=== PATIENT | female | born 1975 | race Caucasian/White ===

== ENCOUNTER 2021-01-31 14:55 | Emergency (ER) | payer OTHER, SELFPAY ==
[2021-01-31 15:01] VITALS: BP 126/66; PULSE 73; RESP 16; TEMP 36.9; O2SAT 98
--- NOTE | 2021-01-31 15:19 | ED.GENADULT ---
HPI - General Adult General Chief complaint: Skin/Abscess/Foreign Body Stated complaint: rash Time Seen by Provider: 01/31/21 15:19 Source: patient and RN notes reviewed Mode of arrival: ambulatory Limitations: no limitations History of Present Illness HPI narrative: 46-year-old female presents to the [facility] with complaints of a rash has a blistery red rash in a linear fashion to the right lumbar area. States she has had a similar rash in the past and was given several different diagnoses. States it started 3 days ago as tingling, redness started yesterday, blister and pain started today with the pain radiating down into her hip and upper thigh. Denies any fevers, chest pain, shortness of breath or abdominal pain. Related Data Home Medications Medication Instructions Recorded Confirmed levothyroxine 01/31/21 Allergies Allergy/AdvReac Type Severity Reaction Status Date / Time cephalexin Allergy Mild hives Verified 01/31/21 15:01 levofloxacin Allergy Mild hives Verified 01/31/21 15:01 metronidazole Allergy Mild hives Verified 01/31/21 15:01 Penicillins Allergy Mild hives Verified 01/31/21 15:01 Sulfa (Sulfonamide Allergy Mild hives Verified 01/31/21 15:01 Antibiotics) Review of Systems Review of Systems: Narrative: CONSTITUTIONAL: Denies fever, chills, or sweats. EYES: Denies visual changes, redness, or discharge. ENT: Denies rhinorrhea, congestion, sore throat, or otalgia. CARDIOVASCULAR: Denies chest pain, palpitations, or edema. RESPIRATORY: Denies cough or dyspnea. GASTROINTESTINAL: Denies abdominal pain, nausea, vomiting, or diarrhea. GENITOURINARY: Denies dysuria or hematuria. SKIN: Reports painful rash. denies itching. MUSCULOSKELETAL: Denies back pain, joint pain, or myalgia. NEUROLOGIC: Denies headache, numbness, or weakness. PSYCHIATRIC: Denies anxiety or depression. All other systems reviewed are negative, except as documented in HPI. [facility] Family History Family History Mother Patient's mother is in good health Sibling Patient's sister is in good health Patient's brother is in good health Father Family history of alcoholism Family history of diabetes mellitus in first degree relative Patient's father is Social History Social History Social History: Smoking status: Current every day smoker Tobacco type: cigarettes Second hand tobacco smoke exposure: Yes Additional smoking assessment comments: pt smokes couple times a week, not daily Alcohol intake: current Drinks per week: 2 Substance use: never Substance use type: does not use Gender identity (if verbalized by the patient): Female Comments At the time of my signature, I reviewed and agree with the nursing past medical, surgical, social, and family history. There is no relevant family history pertinent to the patient complaint. Exam Narrative: Exam Narrative: GENERAL: This is a well-nourished, well-developed patient, in no apparent distress. HEAD: normocephalic, atraumatic. EYES: PERRL. Sclera clear/white. Vision is grossly intact. EARS: External ears normal. NECK: Neck supple, non-tender. CARDIOVASCULAR: Regular rate and rhythm without murmurs, gallops, or rubs. RESPIRATORY: Clear to auscultation. Breath sounds equal bilaterally. No wheezes, rales, or rhonchi. GASTROINTESTINAL: Abdomen soft, non-tender. SKIN: warm, dry, intact. Blistery rash right posterior hip. Good texture and turgor. NEURO: awake, alert, and oriented to person, place and time. There were no obvious focal neurologic abnormalities. EXTREMITIES: No joint tenderness, effusion, or edema noted. No calf tenderness. BACK: Nontender without deformity. Course Vital Signs Vital signs: Vital Signs Temperature 98.5 F 01/31/21 15:01 Pulse Rate 73 01/31/21 15:01 Respiratory Rate 16 01/31/21 15:01 Blood Pr
== END 2021-01-31 15:30 | disposition home or self-care (01) ==
PROVIDERS: Emergency Provider Nurse Practitioner; PCP Family Medicine
DX: B02.9 Zoster without complications (principal); F17.210 Nicotine dependence, cigarettes, uncomplicated; E89.0 Postprocedural hypothyroidism
CPT/HCPCS: 99213; G0463

== ENCOUNTER 2021-10-29 10:07 | Outpatient (CLI) | payer OTHER, SELFPAY ==
--- NOTE | ~2021-10-29 | XR_ITS ---
EXAMINATION: XR knee LT 3V DATE: 10/29/2021 10:23 INDICATION: Left knee pain. TECHNIQUE: 3 views of left knee were obtained. COMPARISON: None. FINDINGS: Bone alignment is normal. No fracture. There is mild osteoarthritis of medial and lateral c ompartments characterized by tiny marginal osteophytes. Joint space narrowing. No knee joint effusion . IMPRESSION: 1. Mild left knee osteoarthritis. Reviewed, dictated and finalized at location A. CARVER
== END 2021-10-29 10:08 | disposition home or self-care (01) ==
LOC: ANHIMG 10:11
PROVIDERS: PCP Family Medicine; Visit Provider Nurse Practitioner Gerontology
DX: M25.562 Pain in left knee (principal); M17.12 Unilateral primary osteoarthritis, left knee
CPT/HCPCS: 73562

== ENCOUNTER 2021-12-13 13:37 | Outpatient (CLI) | payer OTHER, SELFPAY ==
--- NOTE | ~2021-12-13 | XR_ITS ---
XR_CERV2-3V_CR DATE: 12/13/2021 13:58 INDICATION: Right arm and hand numbness TECHNIQUE: AP, open-mouth and lateral views COMPARISON: None FINDINGS: There is straightening of the cervical spine which may be due to muscle spasm. C1 and C2 are normally aligned and the odontoid process is intact. There is mild loss of interspace height at C5-6. There is mild loss of interspace height and mild anterior spurring at C6-7. There is mild uncovertebral joint spurring at C5-6 No fracture or dislocation or locked facet or prevertebral soft tissue swelling. IMPRESSION: Straightening of the cervical spine Mild degenerative disc disease at C5-6 and C6-7 Mild uncovertebral joint spurring at C5-6 Reviewed, dictated and finalized at Location A. Reviewed, dictated and finalized at location A. DRAFTER
== END 2021-12-13 13:38 | disposition home or self-care (01) ==
LOC: ANHIMG 13:42
PROVIDERS: PCP Family Medicine; Visit Provider Nurse Practitioner Gerontology
DX: M79.601 Pain in right arm (principal); M53.82 Other specified dorsopathies, cervical region; M50.322 Other cervical disc degeneration at C5-C6 level; M77.8 Other enthesopathies, not elsewhere classified
CPT/HCPCS: 72040

== ENCOUNTER → 2022-01-05 08:32 | Outpatient (CLI) | payer OTHER, SELFPAY ==
--- NOTE | ~2022-01-05 | MR_ITS ---
EXAMINATION: MR knee LT wo con DATE: 01/05/2022 09:13 INDICATION: Left knee pain TECHNIQUE: Magnetic resonance imaging (MRI) of the left knee was performed without intravenous contra st. Sequences included coronal PD-weighted FSE, coronal PD-weighted FS FSE, sagittal T2-weighted FSE , sagittal PD-weighted FS FSE and axial PD weighted fat saturated FSE. COMPARISON: Left knee radiographs dated 12/24/2021 FINDINGS: Medial compartment: Medial meniscus is normal. Articular cartilage is normal. Lateral compartment: Lateral meniscus is normal. Articular cartilage is normal. Patellofemoral compartment: Partial-thickness tear involving less than 50% the cartilage thickness at the medial patellar facet. Shallow chondral surface regularity along the lateral facet and at the trochlear groove. Ligaments and tendons: Anterior and posterior cruciate ligaments are normal. The medial collateral ligament and fibular courtney ateral ligament complex are normal. The extensor mechanism is normal. The visualized medial hamstring tendons as well as the iliotibial band are normal. There is mild tendinopathy/enthesopathy at the di stal biceps femoris tendon with minimal enthesopathic ossification evident along the distal tendon on the prior radiographs. Fluid: Physiologic amount of fluid in the joint space. No loose osteochondral bodies identified. Small Calles 's cyst. Osseous/other: Normal marrow signal. Bone island at the lateral metaphyseal region of the proximal tibia. No fractur e or pathologic marrow replacing process. IMPRESSION: 1. Mild patellofemoral osteoarthritis with small amount of moderate grade chondromalacia. 2. Chronic mild distal biceps femoris tendinopathy/enthesopathy without discrete tear. 3. Small Calles's cyst. Reviewed, dictated and finalized at location A. SPORTATION WORKER IMPRESSION: 1. Mild patellofemoral osteoarthritis with small amount of moderate grade chond romalacia. 2. Chronic mild distal biceps femoris tendinopathy/enthesopathy without discret e tear. 3. Small Calles's cyst.
== END ==
PROVIDERS: PCP Family Medicine; Visit Provider Nurse Practitioner Family
DX: M25.562 Pain in left knee (principal); M17.12 Unilateral primary osteoarthritis, left knee; M94.262 Chondromalacia, left knee; M71.22 Synovial cyst of popliteal space [Baker], left knee
CPT/HCPCS: 73721

== ENCOUNTER 2022-02-02 08:38 | Outpatient (CLI) | payer OTHER, SELFPAY ==
--- NOTE | 2022-02-02 11:00 | NEURO_ITS ---
Impression: # Complains of pointing and middle finger numbness and nocturnal pain. # Normal nerve conduction study. # No Carpal Tunnel Syndrome or ulnar neuropathy. # Normal needle/EMG exam. # Clinical correlation recommended. Nerve Conduction Studies Anti Sensory Summary Table Stim Site NR Peak (ms) P-T Amp (?V) Site1 Site2 Delta-P (ms) Dist (cm) Jorge (m/s) Right Median Anti Sensory (2-3nd Digit) Wrist 2.4 95.7 Wrist 2-3nd Digit 2.4 14.0 58 Wrist 2.3 98.1 Wrist 2-3nd Digit 2.4 14.0 58 Right Radial Anti Sensory (Base 1st Digit) Wrist 2.2 37.8 Wrist Base 1st Digit 2.2 0.0 Right Ulnar Anti Sensory (5th Digit) Wrist 2.1 83.5 Wrist 5th Digit 2.1 14.0 67 Motor Summary Table Stim Site NR Onset (ms) O-P Amp (mV) Site1 Site2 Delta-0 (ms) Dist (cm) Jorge (m/s) Right Median Motor (Abd Poll Brev) Wrist 2.7 5.5 Elbow Wrist 3.7 23.0 62 Elbow 6.4 4.9 Right Ulnar Motor (Abd Dig Minimi) Wrist 2.1 5.2 A Elbow Wrist 3.8 26.0 68 A Elbow 5.9 2.9 F Wave Studies NR F-Lat (ms) L-R F-Lat (ms) Right Median (Mrkrs) (Abd Poll Brev) 24.74 Right Ulnar (Mrkrs) (Abd Dig Min) 23.96 EMG Side Muscle Nerve Root Ins Act Fibs Amp Dur Recrt Comment Right 1stDorInt Ulnar C8-T1 Nml Nml Nml Nml Nml Right Ext Indicis Radial (Post Int) C7-8 Nml Nml Nml Nml Nml Right Ext Digitorum Radial (Post Int) C7-8 Nml Nml Nml Nml Nml Right BrachioRad Radial C5-6 Nml Nml Nml Nml Nml Right PronatorTeres Median C6-7 Nml Nml Nml Nml Nml Right Abd Poll Brev Median C8-T1 Nml Nml Nml Nml Nml Right ABD Dig Min Ulnar C8-T1 Nml Nml Nml Nml Nml Right Abd Poll Long Radial (Post Int) C7-8 Nml Nml Nml Nml Nml MTDD
== END 2022-02-02 08:39 | disposition home or self-care (01) ==
PROVIDERS: PCP Family Medicine; Visit Provider Nurse Practitioner Gerontology
DX: M79.601 Pain in right arm (principal)
CPT/HCPCS: 95886; 95909

== ENCOUNTER 2022-02-07 01:42 | Day surgery (SDC) | payer OTHER, SELFPAY ==
[2022-01-27 13:05] VITALS: BMI 26.6
--- NOTE | 2022-02-05 12:52 | WPDANESEPPF ---
Anes - Initial Pre Proc Eval Procedure: Operation Date: 02/07/22 10:00 Proposed Procedures p Screening Colonoscopy - Newton Haskins MD Date/Time: 02/05/22 12:52 Surgeon: Newton Haskins MD Pre Op Diagnosis: neoplasm screening Patient Data Age: 47 Gender: F Height: 1.6 m Weight: 68.1 kg Allergies Allergy/AdvReac Type Severity Reaction Status Date / Time cephalexin Allergy Mild hives Verified 02/07/22 08:50 levofloxacin Allergy Mild hives Verified 02/07/22 08:50 metronidazole Allergy Mild hives Verified 02/07/22 08:50 Penicillins Allergy Mild hives Verified 02/07/22 08:50 Sulfa (Sulfonamide Allergy Mild hives Verified 02/07/22 08:50 Antibiotics) Home Medications Medication Instructions Recorded Confirmed Type levothyroxine 137 mcg tablet 137 mcg PO DAILY #30 tablet 10/29/21 02/07/22 Rx Patient hx anesthesia problems: none Family hx anesthesia problems: none Results Review: All pre-operative results and documents have been reviewed as part of the pre-operative evaluation. 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 Screen for colon cancer Surgical History Surgical History History of thyroidectomy Family History Family History Mother Patient's mother is in good health Sibling Patient's sister is in good health Patient's brother is in good health Father Family history of alcoholism Family history of diabetes mellitus in first degree relative Patient's father is Other Arthritis Diabetes mellitus Heart disease Hypertension Social History Social History Social History: Smoking status: Current some day smoker Tobacco type: cigarettes Second hand tobacco smoke exposure: Yes Additional smoking assessment comments: 10 cigarettes a week Alcohol intake: current Drinks per week: 6 Substance use: never Substance use type: does not use Living arrangements: alone Gender identity (if verbalized by the patient): Female Sexual Orientation (if Verbalized by the Patient): Straight or Heterosexual Spiritual care concerns: No Anes - Eval Final PreProcedure Day of Procedure 02/05/22 12:52 Patient weight: overweight Heart: regular rate and rhythm Lungs: clear to auscultation and normal air movement Airway: Mallampati scale class II Neurological: alert and oriented Last oral intake: >/= 8 hours ASA classification: II Emergent: no Anesthetic plan: proceed Anesthesia type and monitoring: general GIVS and standard monitoring Results Review: All pre-operative results and documents have been reviewed as part of the pre-operative evaluation. Informed Consent: The patient's anesthetic plan and its attendant risks and benefits were discussed with the patient/family/POA. Questions were solicited and answers provided to the satisfaction of the patient/family/POA.
[2022-02-07 08:51] VITALS: BP 128/83; PULSE 88; RESP 20; TEMP 35.8; O2SAT 98; BMI 26.5
--- NOTE | 2022-02-07 09:00 | PM.HPGS ---
History of Present Illness History of Present Illness Consent: Risks, benefits, and alternatives have been discussed and questions answered. Patient agrees to proceed with procedure. Chief complaint: neoplasm screening Narrative: Jenny Mejia is a 47 year old female here for first screening colonoscopy Review of Systems Constitutional: Constitutional: Denies headache(s) and Denies weakness Eyes: Eyes: Denies blurry vision ENT: Reports Normal hearing present, Denies headache(s) and Denies neck pain Cardiovascular: Cardiovascular: Denies chest pain and Denies dyspnea Respiratory: Respiratory: Denies dyspnea Gastrointestinal: Gastrointestinal: Reports no additional gastrointestinal complaints Genitourinary: Genitourinary: Denies dysuria Musculoskeletal: Musculoskeletal: Denies neck pain Integumentary/Breasts: Skin/Breast: Denies dry skin Neurologic: Reports Normal hearing present, Denies headache(s) and Denies weakness Psychiatric: Psychiatric: Denies anxiety Endocrine: Endocrine: Denies change in body appearance Hematologic/Lymphatic: Hematologic/Lymphatic: Denies easy bleeding Allergic/Immunologic: Allergic/Immunologic: Denies urticaria PMFSH Past Medical History Medical History (Updated 01/14/22 @ 11:17 by NAOMI Heck) Arm pain, right Breast screening Dehydration Flu-like symptoms Gastroenteritis and colitis, viral Hyperglycemia Hyperlipemia Hypothyroid Knee pain, left Left knee pain Medial meniscus tear Numbness and tingling in right hand Patellofemoral syndrome 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 Screen for colon cancer Surgical History Surgical History History of thyroidectomy Family History Family History Mother Patient's mother is in good health Sibling Patient's sister is in good health Patient's brother is in good health Father Family history of alcoholism Family history of diabetes mellitus in first degree relative Patient's father is Other Arthritis Diabetes mellitus Heart disease Hypertension Social History Social History Social History: Smoking status: Current some day smoker Tobacco type: cigarettes Second hand tobacco smoke exposure: Yes Additional smoking assessment comments: 10 cigarettes a week Alcohol intake: current Drinks per week: 6 Substance use: never Substance use type: does not use Living arrangements: alone Gender identity (if verbalized by the patient): Female Sexual Orientation (if Verbalized by the Patient): Straight or Heterosexual Spiritual care concerns: No Meds Home Medications and Allergies Home Medications Medication Instructions Recorded Confirmed Type levothyroxine 137 mcg tablet 137 mcg PO DAILY #30 tablet 10/29/21 02/07/22 Rx Allergies Allergy/AdvReac Type Severity Reaction Status Date / Time cephalexin Allergy Mild hives Verified 02/07/22 08:50 levofloxacin Allergy Mild hives Verified 02/07/22 08:50 metronidazole Allergy Mild hives Verified 02/07/22 08:50 Penicillins Allergy Mild hives Verified 02/07/22 08:50 Sulfa (Sulfonamide Allergy Mild hives Verified 02/07/22 08:50 Antibiotics) Vital Signs Vital Signs - 24 hr 02/07/22 08:51 Temperature 96.5 F L Pulse Rate 88 Respiratory Rate 20 Blood Pressure 128/83 Pulse Oximetry 98 Exam Const: General: comfortable and no acute distress HENMT: General nose exam: Normal nares present Eyes: General: appearance normal, both eyes and all related structures Neck: Neck: no JVD Resp: Auscultation: clear to auscultation bilaterally Cardio: Rate: regular rate Rhythm: regular rhythm GI: Inspection: non-distended GI Palp: Yes Soft to palpation Skin: General skin exam: normal color Neuro: General: gait normal S
[2022-02-07] MEDS: LACTATED RINGERS 1,000 ML 150 ML IV CONT (09:08)
[2022-02-07 09:32] VITALS: BP 108/72; PULSE 86; RESP 21; O2SAT 98
[2022-02-07 09:42] VITALS: BP 104/74; PULSE 77; RESP 15; O2SAT 100
[2022-02-07 09:52] VITALS: BP 114/83; PULSE 65; RESP 16; O2SAT 100
== END 2022-02-07 09:58 | disposition home or self-care (01) ==
PROVIDERS: PCP Family Medicine; Visit Provider Internal Medicine Gastroenterology
PROC: 0DJD8ZZ Inspection of Lower Intestinal Tract, Via Natural or Artificial Opening Endoscopic (ICD-10-PCS; CPT 45378; principal; 2022-02-07 10:00)
DX: Z12.11 Encounter for screening for malignant neoplasm of colon (principal); D12.3 Benign neoplasm of transverse colon; K63.5 Polyp of colon; K64.8 Other hemorrhoids; E78.5 Hyperlipidemia, unspecified; E89.0 Postprocedural hypothyroidism; B00.9 Herpesviral infection, unspecified; F17.210 Nicotine dependence, cigarettes, uncomplicated
CPT/HCPCS: 45380; 45385; 88305; J2001; J2704; J7120

== ENCOUNTER 2022-03-21 09:56 | Outpatient (CLI) | payer OTHER, SELFPAY ==
--- NOTE | ~2022-03-21 | MM_ITS ---
EXAMINATION: MM screening page BI w nemesio HISTORY: Screening mammogram TECHNIQUE: Craniocaudal and mediolateral oblique 3-D tomosynthesis images were obtained and synthetic 2-D images were generated. CAD analysis was submitted and interpreted. COMPARISON: There is extremely dense breast tissue, which lowers the sensitivity of mammography. BREAST PARENCHYMAL COMPOSITION: FINDINGS: There is no evidence of suspicious mass, calcification, or architectural distortion to sugg est malignancy in either breast. There has been no suspicious interval change. IMPRESSION: 1. No mammographic evidence of malignancy. 2. Recommend routine screening mammography in one year. BI-RADS Category 1: Negative Reviewed, dictated and finalized at location A.
== END 2022-03-21 09:57 | disposition home or self-care (01) ==
LOC: ANHIMG 09:57
PROVIDERS: PCP Family Medicine; Visit Provider Nurse Practitioner Gerontology
DX: Z12.31 Encounter for screening mammogram for malignant neoplasm of breast (principal)
CPT/HCPCS: 77063; 77067

== ENCOUNTER 2022-12-26 10:35 | Outpatient (CLI) | payer OTHER, SELFPAY ==
--- NOTE | ~2022-12-26 | XR_ITS ---
Clinical Indication: Chest pain PA and lateral views of the chest: Comparison: None Findings: The lungs are clear, without evidence of focal consolidation or pleural effusion. Cardiome diastinal silhouette is within normal limits. Bones and soft tissues are unremarkable. Impression: Normal chest. Reviewed, dictated and finalized at location . 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
== END 2022-12-26 10:36 | disposition home or self-care (01) ==
PROVIDERS: PCP Family Medicine; Visit Provider Nurse Practitioner Gerontology
DX: R07.9 Chest pain, unspecified (principal)
CPT/HCPCS: 71046

== ENCOUNTER → 2023-04-18 12:50 | Outpatient (CLI) | payer OTHER, SELFPAY ==
--- NOTE | ~2023-04-18 | MR_ITS ---
EXAMINATION: MR brain/brain stem wo con DATE: 04/18/2023 13:51 INDICATION: arm weakness TECHNIQUE: Magnetic resonance imaging (MRI) of the brain and brainstem was performed without intraven ous contrast. Sequences included sagittal and axial T1-weighted SE, axial diffusion-weighted FS EPI A SSET, axial T2*-weighted GRE, axial T2-weighted FLAIR Propeller, and axial T2-weighted Propeller. Pos tcontrast axial and coronal T1-weighted SE was obtained. Apparent diffusion coefficient (ADC) maps we re created. COMPARISON: None. FINDINGS: No abnormal restricted diffusion to suggest acute ischemic infarct. No MRI evidence of hemorrhage or extra-axial collection. No suspicious foci of susceptibility to suggest prior intraparenchymal hemorr iveth. Normal white matter signal. No evidence of advanced or lobar predominant parenchymal volume los s. The basilar cisterns are patent. Flow voids are preserved. Mild frontal and ethmoid mucosal thicke peter, otherwise the paranasal sinuses are within normal limits. Globes and orbital contents are withi n normal limits. IMPRESSION: Normal MR brain findings. Reviewed, dictated and finalized at location K. IMPRESSION: Normal MR brain findings.
== END ==
PROVIDERS: PCP Family Medicine; Visit Provider Family Medicine
DX: R53.1 Weakness (principal)
CPT/HCPCS: 70551

== ENCOUNTER 2023-04-28 09:00 | Outpatient (RCR) | payer OTHER, SELFPAY ==
--- NOTE | 2023-04-28 11:57 | PTOPEVAL1 ---
Assessment and note entered by Audelia Marrufo, PT Evaluation Information Assessment Status Evaluation Diagnosis L knee pain, cervical myelopathy Onset L knee 3 years ago, R arm tingling November 2021 Subjective Information L knee pain aches pain rated as 5/10. Patient is very active and L knee pain limits ability to ride her bike and go on walks. 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 Pain and tingles have gone away however R pointer finger and thumb have gone numb at this point. Patient has had multiple MRis and nerve conduction studies performed with no answers . Patient goals for therapy are to get feeling back in her fingers and to decrease knee pain in order to get back to riding our bike. Reported Pain Level Pain Score 5: Self Report Assessment PT Clinical Summary Patient referred to physical therapy due to L knee pain and R pointer finger and thumb numbness. Patient presents with L hip/knee weakness and patellar knee pain limiting ability to exercise and ride bike. Patient presents with limited cervical lateral flexion, postural impairments, and R thumb/pointer finger numbness. Patient would benefit from skilled PT to improve lower extremity strength, decrease knee pain, improve posture, and reduce complaints of numbness in R hand. Plan of Care Interventions Electrical Stimulation,Gait Training,Hot Pack/Cold Pack,Manual Therapy,Patient/Caregiver Education, Therapeutic Activities,Therapeutic Exercise, Ultrasound PT Services Indicated Yes Treatment Frequency and 1x/wk 4 weeks Duration recommended 2 times a week however patient reports she is unable to come to clinic that frequently These treatments will address the objective and functional deficits as defined above. The patient will be advanced safely and appropriately in order for the patient to progress towards his/her prior level of function. Additional exercises will be introduced and as well as a comprehensive home exercise program upon discharge, if needed, ?to ensure carryover of functional gains achieved in the clinic. This treatment plan has been reviewed and agreement upon by the patient.
--- NOTE | 2023-04-28 11:57 | OPREHPOC ---
Outpatient Therapy Plan of Care This is a Multidisciplinary Plan of Care that may contain components documented by all disciplines (PT, OT, and ST.) PT Problem 1 PT Problem #1 Knowledge Deficit PT Goal 1 Goal Patient will demonstrate independence with home exercise program PT Problem 2 PT Problem #2 Impaired Strength PT Goal 1 Goal 1. Patient will increase hip extensor strength to 5/5 2. Patient will increase hip abduction strength to 5/5 1. Patient will increase middle trap strength to 4 +/5 2. Patient will increase lower trap strength to 4+ /5 PT Problem 3 PT Problem #3 Pain PT Goal 1 Goal 1. Patient will report knee pain as 1/10 with activities within home. 2. Patient will report return to biking due to relief in L knee pain. PT Problem 4 PT Problem #4 Impaired Sensation PT Goal 1 Goal 1. Patient will report reduction in R hand numbness PT Problem 5 PT Problem #5 Impaired Range of Motion PT Goal 1 Goal 1. Patient will tolerate good upright posture with improvement in rounded shoulders/forward head demonstrated by ability to sit for 20 minutes at desk without discomfort.
--- NOTE | 2023-06-06 14:32 | PCPTNOTE ---
Patient did not return to PT following initial evaluation. Will DC from PT services at this time.
== END 2023-06-07 09:09 | disposition home or self-care (01) ==
LOC: ANHPT 09:00
PROVIDERS: PCP Family Medicine; Visit Provider Family Medicine
DX: M47.12 Other spondylosis with myelopathy, cervical region (principal); R29.898 Other symptoms and signs involving the musculoskeletal system
CPT/HCPCS: 97110; 97162

== ENCOUNTER 2025-07-14 09:46 | Outpatient (CLI) | payer OTHER, SELFPAY ==
--- NOTE | ~2025-07-14 | XR_ITS ---
EXAMINATION: XR chest 2V 07/14/2025 10:03 INDICATION: Cough PROCEDURE: 2 view chest COMPARISON: 12/26/2022 FINDINGS: The lungs are clear. The cardiomediastinal silhouette is within normal limits. There are no pleural effusions. There is no pneumothorax suspected. IMPRESSION: 1: NO ACUTE CARDIOPULMONARY DISEASE. Reviewed, dictated and finalized at location O.
--- OUTSIDE RECORDS SUMMARY | 2025-07-14 10:30 | XMS_ITS | Encounter Summary ---
Author Organization [facility] Address 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
--- OUTSIDE RECORDS SUMMARY | 2025-07-14 10:30 | XMS_ITS | Encounter Summary ---
Author Organization [facility] Address 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
--- OUTSIDE RECORDS SUMMARY | 2025-07-14 10:30 | XMS_ITS | Encounter Summary ---
Author Organization [facility] Address [address] [place] [address] Care Team Providers Care Director Of Accounting Name Role Phone Lina Yeager MD Primary Care Provider +1- [phone] Encounter Details Date Type Department Care Team (Latest Contact Info) Description 04/04/2001 Outpatient Historical [facility],NON-PATIENT Wesley Desouza MD [address] [facility]. [facility] [address] [place] [address] Unspecified nontoxic nodular goiter (Primary Dx) Social History Tobacco Use Types Packs/Day Years Used Date Smoking Tobacco: Never Assessed Comments Unknown Sex and Gender Information Value Date Recorded Sex Assigned at Not on file Legal Sex Female 4:52 AM RN CASE MANAGER Gender Identity Not on file Sexual Orientation Not on file documented as of this encounter Plan of Treatment Not on file documented as of this encounter Visit Diagnoses Diagnosis Unspecified nontoxic nodular goiter- Primary documented in this encounter Care Teams Director Of Accounting Relationship Specialty Start Date End Date Lina Yeager MD PCP - General Family Practice 09/14/16 documented as of this encounter
--- OUTSIDE RECORDS SUMMARY | 2025-07-14 10:30 | XMS_ITS | Encounter Summary ---
Author Organization [facility] Address [address] [place] [address] Care Team Providers Care Usability Strategist Name Role Phone Lina Yeager MD Primary Care Provider +1- [phone] Encounter Details Date Type Department Care Team (Late st Contact Info) Description 08/26/2002 Outpatient Historical [address] [place] [address] Favian Doan MD Social History Tobacco Use Types Packs/Day Years Used Date Smoking Tobacco: Never Assessed Comments Unknown Sex and Gender Information Value Date Recorded Sex Assigned at Not on file Legal Sex Female 4:52 AM DEPUTY CLERK Gender Identity Not on file Sexual Orientation Not on file documented as of this encounter Plan of Treatment Not on file documented as of this encounter Visit Diagnoses Not on filedocumented in this encounter Care Teams Usability Strategist Relationship Specialty Start Date End Date Lina Yeager MD PCP - General Family Practice 09/14/16 documented as of this encounter
--- OUTSIDE RECORDS SUMMARY | 2025-07-14 10:30 | XMS_ITS | Clinical Summary ---
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 Gender Identity Not on file Sexual Orientation Not on file Plan of Treatment Health Maintenance Due Date Last Done Comments DTAP/TDAP/TD VACCINES (1 - Tdap) 01/20/1992 HEPATITIS B VACCINES (1 of 3 - 19+ 3-dose series) 01/20/1992 HPV/Cotest (21-29) 1994 CERVICAL CANCER SCREENING 2003 HPV/Cotest (30-65) 2003 PAP SMEAR 2003 COLORECTAL SCREENING 2018 Colorectal Cancer Screening 2018 FIT-DNA Q 3 years 2018 FIT/FOBT Q 1 year 2018 Flex Sig/CT Colonography Q 5 years 2018 BREAST CANCER SCREENING 09/08/2021 09/08/20 20, 09/18/2019, 09/13/2018, Additional history exists ZOSTER VACCINE (1 of 2) 2023 INFLUENZA VACCINE (#1) 2025 Procedures Procedure Name Priority Date/Time Associated Diagnosis Comments MAMMO SCREEN BILAT W OR WO CAD Routine 09/08/2020 10:10 AM CDT Breast cancer screening by mammogram from Last 3 Months or Most Recently Relevant to Health Maintenance Results * MAMMO SCREEN BILAT W OR WO CAD (09/08/2020 10:10 AM CDT) Anatomical Region Laterality Modality Breast Bilateral Mammography 09/08/2020 10:1 1 AM CDT Impressions 09/08/2020 5:12 PM CDT IMPRESSION: No mammographic evidence of malignancy. RECOMMENDATIONS: Routine screening mammogram in one year. DICTATION LOCATION: [facility] Narrative 09/08/2020 5:12 PM CDT MAMMO SCREEN BILAT W OR WO CAD DATE: 09/08/2020 10:10 AM HISTORY: Routine screening TECHNIQUE: Full field digital craniocaudal and mediolateral oblique projections of both breasts were obtained. Computer aided diagnosis was performed. COMPARISON: 09/18/2019, 09/13/2018, 09/13/2017, 09/16/2016, 09/14/2015. BREAST COMPOSITION: Heterogeneously dense, which limits the sensitivity of mammography. FINDINGS: No suspicious mass, suspicious microcalcifications, or architectural distortion in either breast is identified. Since the prior study, there has been no significant interval change. The computer aided diagnosis detects no significant abnormality. OVERALL FINAL ASSESSMENT: BI-RADS CATEGORY 1: Negative. Procedure Note Corina Segura MD - 09/08/2020 MAMMO SCREEN BILAT W OR WO CAD DATE: 09/08/2020 10:10 AM HISTORY: Routine screening TECHNIQUE: Full field digital craniocaudal and mediolateral oblique projections of both breasts were obtained. Computer aided diagnosis was performed. COMPARISON: 09/18/2019, 09/13/2018, 09/13/2017, 09/16/2016, 09/14/2015. BREAST COMPOSITION: Heterogeneously dense, which limits the sensitivity of mammography. FINDINGS: No suspicious mass, suspicious microcalcifications, or architectural distortion in either breast is identified. Since the prior study, there has been no significant interval change. The computer aided diagnosis detects no significant abnormality. OVERALL FINAL ASSESSMENT: BI-RADS CATEGORY 1: Negative. IMPRESSION: No mammographic evidence of malignancy. RECOMMENDATIONS: Routine screening mammogram in one year. DICTATION LOCATION: [facility] Lina Yeager MD MAMMO ORDERABLES Final Res ult from Last 3 Months or Most Recently Relevant to Health Maintenance Insurance [employer] HMO Care Teams Broadcast News Producer Relationship Specialty Start Date End Date Lina Yeager MD PCP - General Family Practice 09/14/16
--- OUTSIDE RECORDS SUMMARY | 2025-07-14 10:30 | XMS_ITS | Encounter Summary ---
Author Organization [facility] Address 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
--- OUTSIDE RECORDS SUMMARY | 2025-07-14 10:30 | XMS_ITS | Clinical Summary ---
Author Organization [facility] Address [address] [place] [address] Care Team Providers Care Job Change Crew Member Name Role Phone Lina Yeager MD Primary Care Provider Allergies Active Allergy Reactions Criticality Noted Date Comments Amoxicillin Cephalexin Penicillins Sulfa (Sulfonamide Antibiotics) Medications buPROPion XL (WELLBUTRIN XL) 150 mg 24 hr tablet Take 150 mg by mouth daily Active valACYclovir (VALTREX) 500 mg tablet Take 500 mg by mouth daily Active levothyroxine (SYNTHROID) 150 mcg tablet Take 150 mcg by mouth early childhood teacher before breakfast Active Active Problems Problem Noted Date Diagnosed Date Shortness of breath 03/12/2014 High-risk 09/23/2013 Surgical History Surgery Date Site/Laterality Comments TOTAL THYROIDECTOMY Thyroid Surgery Total Thyroidectomy - (Added by TW Conv) LA DILATION & CURETTAGE DX&/ THER NONOBSTETRIC Dilation And Curettage - (Added by TW Conv) SALPINGECTOMY Salpingectomy - (Added by TW Conv) Medical History Medical History Date Comments Habitual aborter, currently Recurrent Loss (Gravid) - (Added by TW Conv) 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 - (Added by TW Conv) Social History Tobacco Use Types Packs/Day Years Used Date Smoking Tobacco: Former Cigarettes Smokeless Tobacco: Former Tobacco Cessation:Counseling Given: No Comments Unknown Sex and Gender Information Value Date Recorded Sex Assigned at Not on file Legal Sex Female 7:26 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 Gender Identity Not on file Sexual Orientation Not on file Obstetrics History Last Filed Vital Signs Vital Sign Reading Time Taken Comments Blood Pressure 110/70 02/10/2023 1:52 PM CDT Pulse 90 02/10/2023 1:52 PM CDT Temperature 36.5 C (97.7 F) 02/10/2023 1:52 PM CDT Respiratory Rate 18 02/10/2023 1:52 PM CDT Oxygen Saturation 98% 02/10/2023 1:52 PM CDT Inhaled Oxygen Concentration - - Weight 76.3 kg (168 lb 3.2 oz) 02/10/2023 1:52 P M CDT Height 160 cm (5' 3) 02/10/2023 1:52 PM CDT Body Mass Index 29.8 02/10/2023 1:52 PM CDT Plan of Treatment Health Maintenance Due Date Last Done Comments Cervical Cancer Screening 1973 Colon Cancer Screening-Colonoscopy 1973 Depression Screening 1973 Hepatitis C Screening 1973 DTaP/Tdap/Td Vaccine (1 - Tdap) 01/20/1984 Hepatitis B Screening 1991 Regular Well Visit/Exam 18-64 1991 Breast Cancer Screening-Mammogram 09/08/2021 09/08/2020, 09/08/2020, 09/18/2019, Additional history exists Zoster Vaccine (1 of 2) 2023 Covid-19 Vaccine ( season) 2024 09/10/2021, 02/12/2021, 01/15/2021 Influenza Vaccine (#1) 2025 Pneumococcal vaccine <65 Aged Out No longer eligible based on patient's age to complete this topic Insurance [employer] Care Teams Job Change Crew Member Relationship Specialty Start Date End Date Lina Yeager MD [address] [place] [address] PCP - General Family Medicine 01/05/23
--- OUTSIDE RECORDS SUMMARY | 2025-07-14 10:30 | XMS_ITS | Encounter Summary ---
Author Organization [facility] Address [address] [place] [address] Care Team Providers Care Bowl Topper Name Role Phone Lina Yeager MD Primary Care Provider +1- [phone] Encounter Details Date Type Department Care Team (Late st Contact Info) Description 01/22/2001 Outpatient Historical [address] [place] [address] Pritesh Schulte MD [address] [place] [address] Social History Tobacco Use Types Packs/Day Years Used Date Smoking Tobacco: Never Assessed Comments Unknown Sex and Gender Information Value Date Recorded Sex Assigned at Not on file Legal Sex Female 4:52 AM INTERNAL MEDICINE SPECIALIST Gender Identity Not on file Sexual Orientation Not on file documented as of this encounter Plan of Treatment Not on file documented as of this encounter Visit Diagnoses Not on filedocumented in this encounter Care Teams Bowl Topper Relationship Specialty Start Date End Date Lina Yeager MD PCP - General Family Practice 09/14/16 documented as of this encounter
--- OUTSIDE RECORDS SUMMARY | 2025-07-14 10:30 | XMS_ITS | Encounter Summary ---
Author Organization [facility] Address [address] [place] [address] Care Team Providers Care Inspecting And Testing Lead Hand Name Role Phone Lina Yeager MD Primary Care Provider +1- [phone] Encounter Details Date Type Department Care Team (Late st Contact Info) Description 12/13/2001 Outpatient Historical [address] [place] [address] Pritesh Schulte MD [address] [place] [address] Social History Tobacco Use Types Packs/Day Years Used Date Smoking Tobacco: Never Assessed Comments Unknown Sex and Gender Information Value Date Recorded Sex Assigned at Not on file Legal Sex Female 4:52 AM INDEX CLERK Gender Identity Not on file Sexual Orientation Not on file documented as of this encounter Plan of Treatment Not on file documented as of this encounter Visit Diagnoses Not on filedocumented in this encounter Care Teams Inspecting And Testing Lead Hand Relationship Specialty Start Date End Date Lina Yeager MD PCP - General Family Practice 09/14/16 documented as of this encounter
--- OUTSIDE RECORDS SUMMARY | 2025-07-14 10:30 | XMS_ITS | Encounter Summary ---
Author Organization [facility] Address [address] [place] [address] Care Team Providers Care Analysis Evaluator Name Role Phone Lina Yeager MD Primary Care Provider +1- [phone] Encounter Details Date Type Department Care Team (Late st Contact Info) Description 07/19/2002 Outpatient Historical [address] [place] [address] Pritesh Schulte MD [address] [place] [address] Social History Tobacco Use Types Packs/Day Years Used Date Smoking Tobacco: Never Assessed Comments Unknown Sex and Gender Information Value Date Recorded Sex Assigned at Not on file Legal Sex Female 4:52 AM FIELD SALES SPECIALIST Gender Identity Not on file Sexual Orientation Not on file documented as of this encounter Plan of Treatment Not on file documented as of this encounter Visit Diagnoses Not on filedocumented in this encounter Care Teams Analysis Evaluator Relationship Specialty Start Date End Date Lina Yeager MD PCP - General Family Practice 09/14/16 documented as of this encounter
--- OUTSIDE RECORDS SUMMARY | 2025-07-14 10:30 | XMS_ITS | Encounter Summary ---
Author Organization [facility] Address [address] [place] [address] Care Team Providers Care Web Retailer Name Role Phone Lina Yeager MD Primary Care Provider +1- [phone] Encounter Details Date Type Department Care Team (Late st Contact Info) Description 04/30/2002 Outpatient Historical [address] [place] [address] Favian Doan MD Social History Tobacco Use Types Packs/Day Years Used Date Smoking Tobacco: Never Assessed Comments Unknown Sex and Gender Information Value Date Recorded Sex Assigned at Not on file Legal Sex Female 4:52 AM MANAGER DATABASE ADMINISTRATION Gender Identity Not on file Sexual Orientation Not on file documented as of this encounter Plan of Treatment Not on file documented as of this encounter Visit Diagnoses Not on filedocumented in this encounter Care Teams Web Retailer Relationship Specialty Start Date End Date Lina Yeager MD PCP - General Family Practice 09/14/16 documented as of this encounter
--- OUTSIDE RECORDS SUMMARY | 2025-07-14 10:30 | XMS_ITS | Encounter Summary ---
Author Organization [facility] Address 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
--- OUTSIDE RECORDS SUMMARY | 2025-07-14 10:30 | XMS_ITS | Encounter Summary ---
Author Organization [facility] Address [address] [place] [address] Care Team Providers Care Broadloom Weaver Name Role Phone Lina Yeager MD Primary Care Provider +1- [phone] Encounter Details Date Type Department Care Team (Late st Contact Info) Description 06/06/2001 Outpatient Historical [address] [place] [address] Pritesh Schulte MD [address] [place] [address] Social History Tobacco Use Types Packs/Day Years Used Date Smoking Tobacco: Never Assessed Comments Unknown Sex and Gender Information Value Date Recorded Sex Assigned at Not on file Legal Sex Female 4:52 AM PHARMACY TECHNOLOGIST Gender Identity Not on file Sexual Orientation Not on file documented as of this encounter Plan of Treatment Not on file documented as of this encounter Visit Diagnoses Not on filedocumented in this encounter Care Teams Broadloom Weaver Relationship Specialty Start Date End Date Lina Yeager MD PCP - General Family Practice 09/14/16 documented as of this encounter
--- OUTSIDE RECORDS SUMMARY | 2025-07-14 10:30 | XMS_ITS | Encounter Summary ---
Author Organization [facility] Address [address] [place] [address] Care Team Providers Care Confectionery Drops Machine Operator Name Role Phone Lina Yeager MD Primary Care Provider +1- [phone] Encounter Details Date Type Department Care Team (Late st Contact Info) Description 01/04/2002 Outpatient Historical [address] [place] [address] Pritesh Schulte MD [address] [place] [address] Social History Tobacco Use Types Packs/Day Years Used Date Smoking Tobacco: Never Assessed Comments Unknown Sex and Gender Information Value Date Recorded Sex Assigned at Not on file Legal Sex Female 4:52 AM RESIDENT ASSOCIATE Gender Identity Not on file Sexual Orientation Not on file documented as of this encounter Plan of Treatment Not on file documented as of this encounter Visit Diagnoses Not on filedocumented in this encounter Care Teams Confectionery Drops Machine Operator Relationship Specialty Start Date End Date Lina Yeager MD PCP - General Family Practice 09/14/16 documented as of this encounter
--- OUTSIDE RECORDS SUMMARY | 2025-07-14 10:30 | XMS_ITS | Encounter Summary ---
Author Organization [facility] Address [address] [place] [address] Care Team Providers Care Wireline Supervisor Name Role Phone Lina Yeager MD Primary Care Provider +1- [phone] Encounter Details Date Type Department Care Team (Late st Contact Info) Description 01/28/2002 Outpatient Historical [address] [place] [address] Pritesh Schulte MD [address] [place] [address] Social History Tobacco Use Types Packs/Day Years Used Date Smoking Tobacco: Never Assessed Comments Unknown Sex and Gender Information Value Date Recorded Sex Assigned at Not on file Legal Sex Female 4:52 AM COOKY PACKER Gender Identity Not on file Sexual Orientation Not on file documented as of this encounter Plan of Treatment Not on file documented as of this encounter Visit Diagnoses Not on filedocumented in this encounter Care Teams Wireline Supervisor Relationship Specialty Start Date End Date Lina Yeager MD PCP - General Family Practice 09/14/16 documented as of this encounter
--- OUTSIDE RECORDS SUMMARY | 2025-07-14 10:30 | XMS_ITS | Encounter Summary ---
Author Organization [facility] Address [address] [place] [address] Care Team Providers Care Drainlayer Name Role Phone Lina Yeager MD Primary Care Provider +1- [phone] Encounter Details Date Type Department Care Team (Late st Contact Info) Description 02/06/2001 Outpatient Historical [address] [place] [address] Favian Doan MD Social History Tobacco Use Types Packs/Day Years Used Date Smoking Tobacco: Never Assessed Comments Unknown Sex and Gender Information Value Date Recorded Sex Assigned at Not on file Legal Sex Female 4:52 AM SEAT NAILER Gender Identity Not on file Sexual Orientation Not on file documented as of this encounter Plan of Treatment Not on file documented as of this encounter Visit Diagnoses Not on filedocumented in this encounter Care Teams Drainlayer Relationship Specialty Start Date End Date Lina Yeager MD PCP - General Family Practice 09/14/16 documented as of this encounter
--- OUTSIDE RECORDS SUMMARY | 2025-07-14 10:30 | XMS_ITS | Encounter Summary ---
Author Organization [facility] Address [address] [place] [address] Care Team Providers Care Horse Rider Name Role Phone Lina Yeager MD Primary Care Provider +1- [phone] Encounter Details Date Type Department Care Team (Late st Contact Info) Description 11/15/2001 Outpatient Historical [address] [place] [address] Pritesh Schulte MD [address] [place] [address] Social History Tobacco Use Types Packs/Day Years Used Date Smoking Tobacco: Never Assessed Comments Unknown Sex and Gender Information Value Date Recorded Sex Assigned at Not on file Legal Sex Female 4:52 AM EAR NOSE THROAT PHYSICIAN Gender Identity Not on file Sexual Orientation Not on file documented as of this encounter Plan of Treatment Not on file documented as of this encounter Visit Diagnoses Not on filedocumented in this encounter Care Teams Horse Rider Relationship Specialty Start Date End Date Lina Yeager MD PCP - General Family Practice 09/14/16 documented as of this encounter
--- OUTSIDE RECORDS SUMMARY | 2025-07-14 10:30 | XMS_ITS | Encounter Summary ---
Author Organization [facility] Address [address] [place] [address] Care Team Providers Care Senior System Operator Name Role Phone Lina Yeager MD Primary Care Provider +1- [phone] Encounter Details Date Type Department Care Team (Late st Contact Info) Description 10/31/2002 Outpatient Historical [address] [place] [address] Pritesh Schulte MD [address] [place] [address] Social History Tobacco Use Types Packs/Day Years Used Date Smoking Tobacco: Never Assessed Comments Unknown Sex and Gender Information Value Date Recorded Sex Assigned at Not on file Legal Sex Female 4:52 AM SUPERINTENDENT COLLIERY Gender Identity Not on file Sexual Orientation Not on file documented as of this encounter Plan of Treatment Not on file documented as of this encounter Visit Diagnoses Not on filedocumented in this encounter Care Teams Senior System Operator Relationship Specialty Start Date End Date Lina Yeager MD PCP - General Family Practice 09/14/16 documented as of this encounter
--- OUTSIDE RECORDS SUMMARY | 2025-07-14 10:30 | XMS_ITS | Encounter Summary ---
Author Organization [facility] Address [address] [place] [address] Care Team Providers Care Lace Weaver Name Role Phone Lina Yeager MD Primary Care Provider +1- [phone] Encounter Details Date Type Department Care Team (Latest Contact Info) Description 05/08/2001 Outpatient Historical [facility] Clif Carrillo MD [address] [facility] [address] [place] [address] Nontoxic multinodular goiter (Primary Dx) Social History Tobacco Use Types Packs/Day Years Used Date Smoking Tobacco: Never Assessed Comments Unknown Sex and Gender Information Value Date Recorded Sex Assigned at Not on file Legal Sex Female 4:52 AM FINAL INSPECTION SUPERVISOR Gender Identity Not on file Sexual Orientation Not on file documented as of this encounter Plan of Treatment Not on file documented as of this encounter Visit Diagnoses Diagnosis Nontoxic multinodular goiter- Primary documented in this encounter Care Teams Lace Weaver Relationship Specialty Start Date End Date Lina Yeager MD PCP - General Family Practice 09/14/16 documented as of this encounter
--- OUTSIDE RECORDS SUMMARY | 2025-07-14 10:30 | XMS_ITS | Encounter Summary ---
Author Organization [facility] Address [address] [place] [address] Care Team Providers Care Technical Project Lead Name Role Phone Lina Yeager MD Primary Care Provider [phone]- [phone] Encounter Details Date Type Department Care Team (Late st Contact Info) Description 04/11/2001 Outpatient Historical [address] [place] [address] Pritesh Schulte MD [address] [place] [address] Social History Tobacco Use Types Packs/Day Years Used Date Smoking Tobacco: Never Assessed Comments Unknown Sex and Gender Information Value Date Recorded Sex Assigned at Not on file Legal Sex Female 4:52 AM [employer] Gender Identity Not on file Sexual Orientation Not on file documented as of this encounter Plan of Treatment Not on file documented as of this encounter Visit Diagnoses Not on filedocumented in this encounter Care Teams Technical Project Lead Relationship Specialty Start Date End Date Lina Yeager MD PCP - General Family Practice 09/14/16 documented as of this encounter
--- OUTSIDE RECORDS SUMMARY | 2025-07-14 10:30 | XMS_ITS | Encounter Summary ---
Author Organization [facility] Address [address] [place] [address] Care Team Providers Care Medical Record Coder Name Role Phone Lina Yeager MD Primary Care Provider [phone]- [phone] Encounter Details Date Type Department Care Team (Latest Contact Info) Description 03/26/2001 Outpatient Historical [facility] Wesley Desouza MD [address] [facility] 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
== END 2025-07-14 09:47 | disposition home or self-care (01) ==
PROVIDERS: PCP Family Medicine
DX: R05.9 Cough, unspecified (principal)
CPT/HCPCS: 71046